=== PATIENT | female | born 1965 | race African-American/Black ===

== ENCOUNTER 2017-01-08 17:44 | Emergency (ER) | payer MEDICAID ==
[~2017-01-08] VITALS: Ht 160 cm; Wt 82.0 kg
[~2017-01-08 17:44] MED LIST: AMLO10TA80 PO; INSU3INS6 SUBCUT; IOHEXOL-350 100 ML BOTTLE ONE; LOSA1TAB33 PO; OMEP20TA15 PO; SODIUM CHLORIDE 0.9% 10ML VIAL ONE; VENL150C2 PO
[2017-01-08] MEDS ORDERED: ASPIRIN 81MG TABLET PO ONE (19:15)
[2017-01-08 19:27] LABS: BASOPHILS % 0.4 % (0.0-2.0); EOSINOPHILS % 0.8 % (0.0-5.0); HEMATOCRIT. 39.9 % (36.0-48.0); HEMOGLOBIN. 13.6 g/dL (12.0-16.0); LYMPHOCYTES % 38.5 % (20.0-50.0); MEAN CORPUSCULAR HEMOGLOBIN 28.6 pg (28.0-32.0); MEAN CORPUSCULAR VOLUME 83.9 fL (81.0-99.0); MEAN PLATELET VOLUME 9.6 fl (7.4-10.4); MONOCYTES % 6.5 % (2.0-8.0); NEUTROPHILS % 53.8 % (40.0-76.0); PLATELET 136 x1000/uL (130-400); RED BLOOD CELL COUNT 4.76 mill/uL (4.2-5.4); RED CELL DISTRIBUTION WIDTH 12.7 % (11.6-14.6); WHITE BLOOD COUNT 6.6 x1000/uL (4.5-11.0)
[2017-01-08 19:39] LABS: ALANINE AMINOTRANSFERASE 152 IU/L (13-61); ALBUMIN 3.3 g/dL (3.4-5.0); ANION GAP 14; CALCIUM 9.3 mg/dL (8.5-10.1); CARBON DIOXIDE 31 mEq/L (21-32); CHLORIDE 90 mEq/L (98-107); D-DIMER 0.62 mg/L FEU (<0.50); INDEX HEMOLYSI 2 (1-3); INDEX ICTERIC 1 (1-4); INDEX LIPEMIC 1 (1-3); INR 1.1; UREA NITROGEN BLOOD 21 mg/dL (7-21); eGFR > 60 mL/min (>60)
[2017-01-08 19:44] LABS: NT PRO B-TYPE NATRIURETIC PEP 12 pg/mL (5-125); TROPONIN I < 0.02 ng/mL (0.00-0.04)
[2017-01-08] MEDS ORDERED: SODIUM CHLORIDE 0.9% 1,000 ML IV NR (19:45)
[2017-01-08] MEDS ORDERED: SODIUM CHLORIDE 0.9% 1,000 ML IV ONE (19:47)
[2017-01-09] MEDS ORDERED: INSULIN REGULAR (HUMULIN R) 300UNITS/3ML IV ONE
[2017-01-09 01:17] LABS: CLARITY URINE CLEAR (CLEAR); COLOR URINE YELLOW (YELLOW); GLUCOSE URINE 3+ (NEGATIVE); KETONES URINE TRACE (NEGATIVE); LEUKOCYTE ESTERASE URINE NEGATIVE (NEGATIVE); NITRITE URINE NEGATIVE (NEGATIVE); OCCULT BLOOD URINE NEGATIVE (NEGATIVE); PROTEIN URINE NEGATIVE (NEGATIVE); UROBILINOGEN URINE 0.2 E.U./dL (0.2-1.0)
[2017-01-09 01:19] LABS: BACTERIA URINE NONE SEEN; CALCIUM PHOSPHATE CRYSTALS UR NONE SEEN /lpf; RBC URINE NONE SEEN /hpf (0-2); SQUAMOUS EPITHELIAL CELL URINE NONE SEEN /lpf (RARE/1+); WAXY CASTS URINE NONE SEEN /lpf; WBC URINE NONE SEEN /hpf (0-2); YEAST URINE NONE SEEN
[2017-01-09 02:16] VITALS: BP 149/92
== END 2017-01-09 03:37 | disposition home or self-care (01) ==
LOC: ER 17:44
DX: R55 Syncope and collapse (principal); K80.20 Calculus of gallbladder without cholecystitis without obstruction; R07.89 Other chest pain; E11.65 Type 2 diabetes mellitus with hyperglycemia; I10 Essential (primary) hypertension; F17.210 Nicotine dependence, cigarettes, uncomplicated; R00.0 Tachycardia, unspecified; Z88.8 Allergy status to other drugs, medicaments and biological substances; Z86.19 Personal history of other infectious and parasitic diseases; Z79.4 Long term (current) use of insulin; Z71.6 Tobacco abuse counseling
CPT/HCPCS: 36415; 71010; 71275; 80053; 81001; 82962; 83880; 84484; 85025; 85379; 85610; 93005; 96361; 96374; 99285; 99406; A4216; J1815; J7030; Q9967; Z7610

== ENCOUNTER 2025-02-26 11:44 | Inpatient (IN) | payer BC, MEDICARE, MEDICAID ==
[~2025-02-26] VITALS: Ht 170.2 cm; Wt 70.3 kg
[~2025-02-26 11:44] MED LIST changes: +EFXR15 PO; -IOHEXOL-350 100 ML BOTTLE ONE; -LOSA1TAB33 PO; +LOSA1TAB40 PO; -SODIUM CHLORIDE 0.9% 10ML VIAL ONE; -VENL150C2 PO
[2025-02-26 11:48] VITALS: O2SAT 100
[2025-02-26 12:21] LABS: PLATELET 225 x1000/uL (130-400); RED BLOOD CELL COUNT 3.52 mill/uL (4.2-5.4); RED CELL DISTRIBUTION WIDTH 15.8 % (11.6-14.6)
[2025-02-26 12:38] LABS: UREA NITROGEN BLOOD 62.0 mg/dL (9-23)
[2025-02-26 12:42] LABS: CREATININE 11.9 mg/dL (0.6-1.0)
[2025-02-26 13:10] LABS: PHOSPHORUS 4.5 mg/dL (2.5-4.9)
[2025-02-26 13:11] LABS: INR 1.0
[2025-02-26 13:16] LABS: HEMATOCRIT. 30.6 % (36.0-48.0); HEMOGLOBIN. 9.4 g/dL (12.0-16.0); MEAN PLATELET VOLUME 7.5 fl (7.4-10.4)
[2025-02-26 13:23] LABS: BAND% 2.0 % (1.0-6.0); EOSINOPHILS % MANUAL 1.0 % (0.0-5.0); LYMPHOCYTES % MANUAL 24.0 % (20.0-60.0); MONOCYTES % MANUAL 7.0 % (2.0-8.0); NEUTROPHILS % MANUAL 66.0 % (45.0-75.0); PLATELET ESTIMATE NORMAL
[2025-02-26 14:58] LABS: HEPATITIS A AB IGM NEGATIVE (Negative); HEPATITIS B CORE AB IGM NEGATIVE (Negative)
[2025-02-26 15:02] VITALS: O2SAT 96
[2025-02-26 15:09] LABS: HEPATITIS C AB REACTIVE (Pos) (Negative)
[2025-02-26 15:10] VITALS: BP 125/79; PULSE 101; RESP 16; TEMP 36.6
== END 2025-02-26 17:28 | disposition left against medical advice (07) | DRG 682 ==
LOC: ER 11:44 → 5WST 13:39 → EDBEDREQ 13:57 → EDBEDREQTM 13:57 → ENRESERV 14:12
PROVIDERS: ADMIT Internal Medicine; ATTEND Internal Medicine
DX: I12.0 Hypertensive chronic kidney disease with stage 5 chronic kidney disease or end stage renal disease (principal); N18.6 End stage renal disease; Z53.29 Procedure and treatment not carried out because of patient's decision for other reasons; E11.22 Type 2 diabetes mellitus with diabetic chronic kidney disease; Z99.2 Dependence on renal dialysis; Z79.899 Other long term (current) drug therapy; Z88.8 Allergy status to other drugs, medicaments and biological substances
CPT/HCPCS: 36415; 80048; 83735; 84100; 85025; 86705; 86709; 87340; 93005; 99285; A6449